=== PATIENT | male | born 1975 | race Two or more races ===

== ENCOUNTER 2021-06-05 13:49 | Inpatient (IN) | payer MEDICAID ==
[~2021-06-05] VITALS: Ht 167.6 cm; Wt 85.3 kg
[2021-06-05] MEDS ORDERED: HYDROCODONE/APAP 5/325MG TABLET PO ONE (14:30)
--- NOTE | 2021-06-05 15:00 | NUR ---
BIB SON C/O R ELBOW PAIN S/P FALL
[2021-06-05] MEDS ORDERED: HYDROCODONE/APAP 5/325MG TABLET ONE (15:32)
[2021-06-05 17:38] LABS: BASOPHILS % (AUTO) 0.3 % (0.0-2.0); EOSINOPHILS % (AUTO) 0.2 % (0.0-6.0); HEMATOCRIT 44 % (39-51); HEMOGLOBIN 14.6 g/dL (13.5-17.5); LYMPHOCYTES # (AUTO) 1.4 K/uL (0.8-4.8); LYMPHOCYTES % (AUTO) 12.1 % (20.0-44.0); MEAN CORPUSCULAR HGB CONC 33 g/dl (31.0-36.0); MEAN CORPUSCULAR VOLUME 95 fL (80-96); MONOCYTES # (AUTO) 0.7 K/uL (0.1-1.30); MONOCYTES % (AUTO) 5.8 % (2.0-12.0); NEUTROPHILS # (AUTO) 9.6 K/uL (1.8-8.9); NEUTROPHILS % (AUTO) 81.6 % (43.0-81.0); PLATELET COUNT (AUTO) 243 K/uL (150-450); RED BLOOD CELL COUNT(AUTO) 4.64 MIL/uL (4.5-6.0); WHITE BLOOD COUNT (AUTO) 11.8 K/uL (4.3-11.0)
--- NOTE | 2021-06-05 17:39 | NUR ---
COVID SWAB DONE AND SENT TO LAB
[2021-06-05 18:24] LABS: CALCIUM, SERUM 8.9 mg/dL (8.5-10.1); CREATININE 0.9 mg/dL (0.6-1.3); POTASSIUM 3.5 mmol/L (3.5-5.1)
--- NOTE | 2021-06-05 19:28 | NUR ---
PAGED EPIC FOR PT. AWAITING A CALL BACK.
--- NOTE | 2021-06-05 19:58 | NUR ---
PAGED ORTHO AWAITING A CALL BACK.
--- NOTE | 2021-06-05 20:00 | NUR ---
RECEIVED REPORT FROM MARCELINO GRANT FOR PRATIMA
--- NOTE | 2021-06-05 20:01 | NUR ---
PT IS RESTING COMFORTABLY IN BED, PT DENIES ANY PAON AT THIS TIME.
--- NOTE | 2021-06-05 21:10 | NUR ---
PER LAB, COVID ANTIGEN SWAB NOT SUBMITTED. 2ND SWAB COLLECTED AND SENT TO LAB
[2021-06-05] MEDS ORDERED: HYDROCODONE/APAP 5/325MG TABLET PO PRN (21:30)
[2021-06-05] MEDS ORDERED: Z GUARD REMEDY 4 OZ OINT TP PRN (21:30)
[2021-06-05] MEDS ORDERED: ACETAMINOPHEN 325 MG TABLET PO PRN (21:30)
[2021-06-05] MEDS ORDERED: ONDANSETRON HCL/PF 4 MG/2 ML VIAL IVP PRN (21:30)
--- NOTE | 2021-06-05 21:59 | NUR ---
REPORT GIVEN TO FIDENCIO GRANT FOR PRATIMA
[2021-06-05 22:23] VITALS: BP 153/96
[2021-06-05 22:48] VITALS: BP 153/96
--- NOTE | 2021-06-05 22:48 | NUR ---
RN ADMITTING NOTE PATIENT ADMITTED FROM ER D/T R ELBOW FX- PATIENT CHASING THE BUS AND MIS-STEPPED ON THE SIDEWALK. PATIENT IS A/O X 4 ABLE TO MAKE NEEDS KNOWN, CROATIAN SPEAKING BUT UNDERSTANDS SOME AUSTRIAN. PATIENT COMPLAINING OF PAIN ON THE RIGHT ELBOW. SLING AND A CAST PRESENT ON THE RIGHT UPPER ARM. PATIENT IS AMBULATORY AND STEADY. SKIN IS INTACT. PATIENT STATES HE GOT THE COVID VACCINE X2 [facility] AND WOULD LIKE TO RECEIVE THE FLU VACCINE UPON DC. PATIENT HAS A LAC 20 G, PATENT AND INTACT. PATIENT CURRENTLY NPO AT THIS TIME PENDING ORTHO CONSULT. SKIN IS INTACT. BELONGINGS INVENTORIED, ORIENTED PATIENT TO ROOM, RN, AND OUTSIDE ENERGY SALES REPRESENTATIVES. SAFETY MEASURES IN PLACE: BED LOCKED AND IN LOWEST POSITION, CALL LIGHT WITHIN REACH, SIDE RAILS UP. WILL CONTINUE TO MONITOR PATIENT.
[2021-06-05] MEDS: IV NS 0.9% 1,000 ML IV PRN (23:15)
[2021-06-05] MEDS: MORPHINE SULFATE INJ 2 MG/ML DISP.SYRIN IV PRN (23:18)
--- NOTE | 2021-06-05 23:18 | NUR ---
RN NOTE PATIENT GIVEN MORPHINE 4 MG FOR PAIN ON R ELBOW. WILL REASSESS PAIN AND MED EFFECTIVENESS AT A LATER TIME
[2021-06-06 06:22] LABS: BASOPHILS % (AUTO) 0.5 % (0.0-2.0); EOSINOPHILS % (AUTO) 1.5 % (0.0-6.0); HEMATOCRIT 40 % (39-51); HEMOGLOBIN 13.6 g/dL (13.5-17.5); LYMPHOCYTES # (AUTO) 1.7 K/uL (0.8-4.8); LYMPHOCYTES % (AUTO) 26.8 % (20.0-44.0); MEAN CORPUSCULAR HGB CONC 34 g/dl (31.0-36.0); MEAN CORPUSCULAR VOLUME 93 fL (80-96); MONOCYTES # (AUTO) 0.5 K/uL (0.1-1.30); MONOCYTES % (AUTO) 8.4 % (2.0-12.0); NEUTROPHILS # (AUTO) 4.1 K/uL (1.8-8.9); NEUTROPHILS % (AUTO) 62.8 % (43.0-81.0); PLATELET COUNT (AUTO) 205 K/uL (150-450); RED BLOOD CELL COUNT(AUTO) 4.25 MIL/uL (4.5-6.0); WHITE BLOOD COUNT (AUTO) 6.5 K/uL (4.3-11.0)
--- NOTE | 2021-06-06 06:42 | NUR ---
RN CLOSING NOTE PATIENT IS IN BED, EYES CLOSED. EASILY AWAKENED WITH VERBAL STIMULI. PATIENT IS [place]ER SPEAKING, UNDERSTANDS SOME LITHUANIAN. CURRENTLY ON RA, TOLERATING WELL. PATIENT NOT IN ANY APPARENT DISTRESS. SLING ON BLANK STILL ON, CAST INTACT. PATIENT OFFERED PAIN MEDICATION AT THIS TIME, REFUSED, AND PATIENT DENIES PAIN AT THIS TIME. PATIENT HAS A LAC 20 G WITH NS AT 75 ML/HR. PAIN MANAGED WITH MORPHINE 4 MG. NPO STATUS MAINTAINED. SAFETY MEASURES IMPLEMENTED. ALL NEEDS MET AND ATTENDED. ALL ORDERS CARRIED OUT. WILL ENDORSE TO DAY SHIFT NURSE FOR PRATIMA.
[2021-06-06 06:43] LABS: ALBUMIN 3.4 g/dL (3.4-5.0); CALCIUM, SERUM 8.1 mg/dL (8.5-10.1); CREATININE 0.9 mg/dL (0.6-1.3); MAGNESIUM 2.3 mg/dL (1.8-2.4); PHOSPHORUS 3.1 mg/dL (2.5-4.9); POTASSIUM 3.2 mmol/L (3.5-5.1); TOTAL PROTEIN, SERUM 6.6 g/dL (6.4-8.2)
[2021-06-06 08:00] VITALS: BP 143/96
[2021-06-06] MEDS: PANTOPRAZOLE 40 MG VIAL IV SCH (08:26)
[2021-06-06] MEDS: MORPHINE SULFATE INJ 2 MG/ML DISP.SYRIN IV PRN ×2 (08:37→20:20)
--- NOTE | 2021-06-06 08:37 | NUR ---
MEDICATED WITH IV MORPHINE,STATES LITTLE NUMBNESS FINGERS ON RT. HAND.
[2021-06-06] MEDS: POTASSIUM CL. PREMIX PERIPHER. 50 ML IV SCH ×4 (08:49→13:54)
--- NOTE | 2021-06-06 11:43 | NUR ---
MALLORY GALLO AND DR. CASTAÑEDA IN TO SEE PT.DOWN AT THIS TIME FOR CT OF RT. ELBOW,HAS BEEN NPO,PLAN FOR SURG.FOR TUESDAY OR TUE.PER DR. CASTAÑEDA.
[2021-06-06] MEDS: IV NS 0.9% 1,000 ML IV PRN ×2 (12:14→22:10)
--- NOTE | 2021-06-06 13:35 | NUR ---
GETTING IV POTASSIUM REPLACEMENT.
[2021-06-06 16:02] VITALS: BP_SYST 121; BP_SYST 141; BP_DIAS 63; BP_DIAS 91
--- NOTE | 2021-06-06 18:01 | NUR ---
cooperative.no compaints at this time.
[2021-06-06 20:00] VITALS: BP_SYST 138; BP_SYST 95; BP_DIAS 33; BP_DIAS 81
--- NOTE | 2021-06-06 20:31 | NUR ---
RN OPENING NOTE PATIENT IS IN BED, AWAKE, FRIEND AT BEDSIDE. PATIENT IS SAMOAN SPEAKING, UNDERSTANDS SOME DANISH. CURRENTLY ON RA, TOLERATING WELL. PATIENT NOT IN ANY APPARENT DISTRESS. SLING ON BLANK STILL ON, CAST INTACT. PATIENT HAS PAIN 7-8 ON PAIN SCALE BLANK. MORPHINE GIVEN. PATIENT HAS A LAC 20 G, EXPRESSES PAIN ON IV SITE. INSERTED NEW IV ACCESS ON L HAND 20G- PATENT AND INTACT. PATIENT HAS NS @75 ML/HR. SAFETY MEASURES IMPLEMENTED: BED LOCKED AND IN LOWEST POSITION, CALL LIGHT WITHIN REACH, SIDE RAILS UP. WILL MONITOR PATIENT CLOSELY.
--- NOTE | 2021-06-07 06:46 | NUR ---
RN CLOSING NOTE PATIENT IS IN BED, SLEEPING. PATIENT IS ENGLISH SPEAKING, UNDERSTANDS SOME ITALIAN. CURRENTLY ON RA, TOLERATING WELL. PATIENT NOT IN ANY APPARENT DISTRESS. SLING ON BLANK STILL ON, CAST INTACT. L HAND 20G- PATENT AND INTACT. PATIENT HAS NS @75 ML/HR. SAFETY MEASURES IMPLEMENTED: BED LOCKED AND IN LOWEST POSITION, CALL LIGHT WITHIN REACH, SIDE RAILS UP. ALL NEEDS MET AND ATTENDED. ALL ORDERS CARRIED OUT. WILL ENDORSE TO DAY SHIFT NURSE FOR PRATIMA.
--- NOTE | 2021-06-07 08:09 | NUR ---
RN OPENING NOTE PATIENT IN BED RESTING,AWAKE, A/O X4, NO S/S OF PAIN NOTED AT THIS TIME. ON ROOM AIR, NO DISTRESS OR SHORTNESS OF BREATH NOTED. IV ACCESS L HAND #20G, INTACT, PATENT AND FLUSHING WELL. FALL AND SAFETY MEASURES IN PLACE, BED ALARM ON, BED IN LOW AND LOCK POSITION, CALL LIGHT AND TABLE WITHIN EASY REACH, SIDE RAILS UP X2. WILL CONTINUE TO MONITOR.
[2021-06-07 08:14] VITALS: BP 148/93
[2021-06-07 08:44] LABS: CALCIUM, SERUM 8.2 mg/dL (8.5-10.1); CREATININE 0.8 mg/dL (0.6-1.3); POTASSIUM 3.5 mmol/L (3.5-5.1)
[2021-06-07] MEDS: PANTOPRAZOLE 40 MG VIAL IV SCH (09:48)
[2021-06-07] MEDS: MORPHINE SULFATE INJ 2 MG/ML DISP.SYRIN IV PRN (10:23)
[2021-06-07] MEDS: IV NS 0.9% 1,000 ML IV PRN (13:28)
--- NOTE | 2021-06-07 18:10 | NUR ---
RN opening notes Received Pt from morning nurse. Pt is sitting in bed comfortably accompanied by his friend. Pt is alert and orientedx4. with R arm cast and sling on. Pt speaks Sao Tomean and able to make needs known. On room air. No SOB. No S/S of distress noted. IV site at L hand # 20 is clean, intact and infusing well NS@ 75ml/hr. Pt is able to ambulate with a steady gait. Safety precautions is maintained. Bed at low position, brakes locked, side rails upX2, hob elevated and call light is within reach. Will continue to monitor.
--- NOTE | 2021-06-07 19:00 | NUR ---
RN notes Pt's complaining of pain on R arm and elbow and requesting pain med. administered norco5/1 tab/po/prn as ordered for pain. VS is stable. safety precautions is maintained. Will continue to monitor.
--- NOTE | 2021-06-07 19:36 | NUR ---
RN CLOSING NOTE PATIENT IN BED RESTING,AWAKE, A/O X4, NO S/S OF PAIN NOTED AT THIS TIME. ON ROOM AIR, NO DISTRESS OR SHORTNESS OF BREATH NOTED. IV ACCESS L HAND #20G, INTACT, PATENT AND FLUSHING WELL. ALL SCHEDULE MEDICATIONS ADMINISTERED. FALL AND SAFETY MEASURES IN PLACE, BED ALARM ON, BED IN LOW AND LOCK POSITION, CALL LIGHT AND TABLE WITHIN EASY REACH, SIDE RAILS UP X2. PATIENT SHOULD BE NPO- NIGHT BEFORE SURGERY. WILL ENDORSE TO VEHICLE LEASING AND RENTAL MANAGER.
[2021-06-07 20:00] VITALS: BP 154/93
[2021-06-07 20:13] VITALS: BP 154/93
[2021-06-08] VITALS (7 sets, daily range): BP systolic 138–160; BP diastolic 81–101
[2021-06-08] MEDS: IV NS 0.9% 1,000 ML IV PRN (02:03)
[2021-06-08 02:25] LABS: BASOPHILS # (AUTO) 0.1 K/uL (0.0-0.2); BASOPHILS % (AUTO) 0.9 % (0.0-2.0); EOSINOPHILS % (AUTO) 1.7 % (0.0-6.0); HEMATOCRIT 38 % (39-51); LYMPHOCYTES # (AUTO) 1.9 K/uL (0.8-4.8); LYMPHOCYTES % (AUTO) 28.9 % (20.0-44.0); MEAN CORPUSCULAR HGB CONC 35 g/dl (31.0-36.0); MEAN CORPUSCULAR VOLUME 93 fL (80-96); MONOCYTES # (AUTO) 0.6 K/uL (0.1-1.30); MONOCYTES % (AUTO) 8.6 % (2.0-12.0); NEUTROPHILS # (AUTO) 3.9 K/uL (1.8-8.9); NEUTROPHILS % (AUTO) 59.9 % (43.0-81.0); PLATELET COUNT (AUTO) 192 K/uL (150-450); RED BLOOD CELL COUNT(AUTO) 4.07 MIL/uL (4.5-6.0); WHITE BLOOD COUNT (AUTO) 6.5 K/uL (4.3-11.0)
[2021-06-08 02:50] LABS: ALBUMIN 3.1 g/dL (3.4-5.0); BILIRUBIN,TOTAL 0.5 mg/dL (0.2-1.0); CALCIUM, SERUM 8.2 mg/dL (8.5-10.1); CREATININE 0.9 mg/dL (0.6-1.3); POTASSIUM 3.7 mmol/L (3.5-5.1); TOTAL PROTEIN, SERUM 6.6 g/dL (6.4-8.2)
--- NOTE | 2021-06-08 06:41 | NUR ---
RN closing notes Pt is resting in bed comfortably. Pt is alert and orientedx4 with R arm cast and sling on. On room air. No SOB. No S/S of distress noted. IV site at L hand # 20 is clean, intact and infusing well NS@ 75ml/hr. Pt is NPO since midnight. Kept Pt clean, dry and comfortable. Safety precautions is maintained. Bed at low position, brakes locked, side rails upX2, hob elevated and call light is within reach. Will endorse to am nurse for PRATIMA.
--- NOTE | 2021-06-08 07:20 | NUR ---
RN OPENING NOTES RECEIVED PATIENT IN BED, AWAKE, A/OX4, VERBALLY RESPONSIVE. NO SIGNS OF ACUTE DISTRESS NOTED. STABLE ON ROOM AIR. ON NPO FOR PLANNED SURGERY THIS MORNING. NOTED WITH IV ACCESS ON LEFT HAND #20G, INTACT AND PATENT WITH NS @75ML/HR RUNNING. SAFETY MEASURES IN PLACE. WILL CONTINUE TO MONITOR PATIENT.
[2021-06-08] MEDS ORDERED: POLYMYXIN B SULFATE 500,000 UNITS ONE (07:40)
[2021-06-08] MEDS ORDERED: BUPIVACAINE MPF 0.5% W/EPI INJ 30 ML VIAL ONE (07:40)
[2021-06-08] MEDS ORDERED: ANESTHESIA TRAY IN PYXIS 1 EA TRAY MC ONE (07:40)
[2021-06-08] MEDS ORDERED: BUPIVACAINE 0.5 % PF 150 MG/30 ML VIAL ONE (07:40)
--- NOTE | 2021-06-08 08:14 | NUR ---
RN NOTES PATIENT PICKED UP BY NURSE VEGA FOR SURGERY, IN STABLE CONDITION.
[2021-06-08] MEDS: PANTOPRAZOLE 40 MG TABLET.DR PO SCH (09:00)
[2021-06-08] MEDS ORDERED: FENTANYL PF 250MCG/5ML AMPUL ONE ×2 (09:38)
[2021-06-08] MEDS ORDERED: MIDAZOLAM HCL 2 MG/2ML VIAL ONE (09:39)
[2021-06-08] MEDS ORDERED: FAMOTIDINE/PF INJ 20 MG/2 ML VIAL IV ONE (09:39)
[2021-06-08] MEDS ORDERED: HYDROMORPHONE INJ 2 MG/ML DISP.SYRIN ONE (09:39)
[2021-06-08] MEDS ORDERED: ROCURONIUM BROMIDE 50 MG/5 ML ONE (09:40)
[2021-06-08] MEDS ORDERED: VANCOMYCIN 1 GM VIAL ONE ×2 (11:02→11:05)
[2021-06-08] MEDS ORDERED: HYDROMORPHONE 1 MG/1 ML DISP.SYRIN ONE (12:38)
--- NOTE | 2021-06-08 13:40 | NUR ---
RN NOTES PATIENT BACK FROM SURGERY. S/P ORIF RIGHT DISTAL HUMERUS. NOTES SITE WITH CLEAN AND DRY DRESSING, WITH SLING IN PLACE. PATIENT REMAINS AWAKE, ALERT AND VERBALLY RESPONSIVE. NO SIGNS OF ACUTE RESPIRATORY DISTRESS NOTED. VITAL SIGNS WITHIN NORMAL LIMITS. STABLE ON ROOM AIR. D5 1/2 NS + 20MEQ KCL STARTED. WILL CONTINUE TO MONITOR PATIENT.
[2021-06-08] MEDS: IV D5/0.45 NACL W/20 MEQ KCL 1L IV PRN ×2 (13:54)
[2021-06-08] MEDS: MORPHINE SULFATE INJ 4 MG/ML DISP.SYRIN IV PRN ×4 (14:52→23:22)
[2021-06-08] MEDS: ANCEF 1 GM/50 ML D5W IV SCH ×2 (17:05)
--- NOTE | 2021-06-08 18:44 | NUR ---
RN CLOSING NOTES PATIENT IN BED, AWAKE, A/OX4, VERBALLY RESPONSIVE. NO SIGNS OF ACUTE DISTRESS NOTED. REMAINS STABLE ON ROOM AIR. S/P ORIF RIGHT HUMERUS, SITE WITH SPLINT AND SLING IN PLACE. IV ACCESS ON LEFT HAND #20G, INTACT AND PATENT WITH D5 1/2 NS + 20 MEQ KCL @75ML/HR RUNNING. SAFETY MEASURES MAINTAINED. BED LOCKED AND IN LOWEST POSITION, SR UP X2, CALL LIGHT PLACED WITHIN EASY REACH. WILL ENDORSE TO NEXT SHIFT.
--- NOTE | 2021-06-08 19:40 | NUR ---
MSRN FULLY AWAKE, RESTING QUIETLY. LEVEL OF PAIN TOLERABLE. RIGHT SHOULDER DRESSING INTACT WITH ARM SLING ARM SWOLLEN. ELEVATED ON PILLOWS. PRESENT IVF INFUSING WELL VIA LEFT HAND. KEPT COMFORTABLE, REMINDED TO CALL STAFF FOR ANY ASSISTANCE OR DISCOMFORTS. CALL LIGHR WITHIN REACH.
--- NOTE | 2021-06-08 21:30 | NUR ---
MSRN VERBALIZES SEVERE RIGHT ARM PAIN. MORPHINE 4 MG IVP ADMINISTERED ORDERED. BEDREST INSTRUCTED. CONTINUED.
--- NOTE | 2021-06-08 23:00 | NUR ---
MSRN PAIN MGT REVIEWED WITH PATIENT THROUGH TRANSLATION WITH ARGENTINE SPEAKING STAFF. WELL UNDERSTOOD. PLAN OF CARE AND MEDICATION REGIMEN DISCUSSED WITH PATIENT. APPEARS TO UNDERSTAND.
[2021-06-09] MEDS: ANCEF 1 GM/50 ML D5W IV SCH ×4 (02:04→11:21)
[2021-06-09] MEDS: MORPHINE SULFATE INJ 4 MG/ML DISP.SYRIN IV PRN ×3 (02:18→08:05)
--- NOTE | 2021-06-09 04:29 | NUR ---
MSRN SLEEPS ON/OFF. HAS BEEN MEDICATED FOR POST OP PAIN ALMOST Q 2 HRS. KEPT RIGHT ARM ELEVATED ON PILLOWS. KEPT COMFORTABLE.
--- NOTE | 2021-06-09 06:48 | NUR ---
MSRN ASLEEP, IVF CONTINUED.
--- NOTE | 2021-06-09 07:35 | NUR ---
RN OPENING NOTES RECEIVED PATIENT IN BED, AWAKE A/O X4. ON RA WITH NO S/SX OF RESP DISTRESS NOTED. S/P ORIF RIGHT HUMERUS. MINIMAL COMPLAINT OF PAIN TO THE RIGHT ARM WITH SOME EDEMA NOTED TO THE RIGHT HAND. RIGHT ARM IN SLING WITH KODY BANDAGE IN PLACE, ELEVATED FOR COMFORT AND HEALING. IV ACCESS ON LEFT HAND G#20, INTACT AND PATENT WITH D5 1/2 NS RUNNING @75ML/HR RUNNING. SAFETY MEASURES IN PLACE. WILL CONTINUE PLAN OF CARE
[2021-06-09 08:00] VITALS: BP 154/91
[2021-06-09] MEDS: PANTOPRAZOLE 40 MG TABLET.DR PO SCH (08:05)
[2021-06-09] MEDS: IV NS 0.9% 1,000 ML IV PRN (08:29)
[2021-06-09] MEDS: HYDROCODONE/APAP 10/325MG TABLET PO PRN ×3 (12:46→21:55)
--- NOTE | 2021-06-09 13:00 | NUR ---
RN NOTES L HAND G#20 ACCESS INFILTRATED/DISCONTINUED. NEW ACCESS L AC G#20, FLUSHING WELL.
[2021-06-09 16:00] VITALS: BP 150/90
--- NOTE | 2021-06-09 18:49 | NUR ---
RN CLOSING NOTES PATIENT AWAKE IN BED, A/O X4. ON RA WITH NO S/SX OF RESPIRATORY DISTRESS NOTED. RIGHT ARM WITH KODY WRAP AND SLING IN PLACE. ELEVATED AND ICE PRN FOR SWELLING. EDEMA NOTED AT RIGHT HAND IS DECREASING FROM THIS MORNING. PATIENT EXPRESSES DECREASE IN PAIN. SAFETY MEASURES IN PLACE. WILL ENDORSE TO HOTEL MAINTENANCE WORKER NURSE FOR PRATIMA
--- NOTE | 2021-06-09 19:43 | NUR ---
RN OPENING NOTES PATIENT AWAKE IN BED, A/O X4. ON RA WITH NO S/SX OF RESPIRATORY DISTRESS NOTED. RIGHT ARM WITH KODY WRAP AND SLING IN PLACE. ELEVATED AND ICE PRN FOR SWELLING. EDEMA NOTED AT RIGHT HAND. PATIENT EXPRESSES NO PAIN AT THIS TIME. SAFETY MEASURES IN PLACE. WILL CONTINUE TO MONITOR.
[2021-06-09 20:00] VITALS: BP 141/89
--- NOTE | 2021-06-09 22:16 | NUR ---
MS RN NOTES PROVIDED PT WITH PRN NORCO 10-325 FOR 7/10 PAIN. TOLERATED WELL. WILL CONTINUE TO MONITOR.
[2021-06-10] MEDS: HYDROCODONE/APAP 10/325MG TABLET PO PRN ×3 (02:09→21:58)
--- NOTE | 2021-06-10 02:10 | NUR ---
MS RN NOTE PATIENT REPORTING 7/10 PAIN ON RIGHT ELBOW WHILE COVERING FOR RUDY RICHARDSON. NORCO 10-325 MG PO GIVEN ORDERED
--- NOTE | 2021-06-10 06:39 | NUR ---
RN CLOSING NOTES PATIENT AWAKE IN BED, A/O X4. ON RA WITH NO S/SX OF RESPIRATORY DISTRESS NOTED. RIGHT ARM WITH KODY WRAP AND SLING IN PLACE. ELEVATED AND ICE PRN FOR SWELLING. EDEMA NOTED AT RIGHT HAND. PATIENT GIVEN PRN NORCO THROUGHOUT THE SHIFT FOR PAIN MANAGEMENT TOLERATED WELL. SAFETY MEASURES IN PLACE. WILL ENDORSE CARE TO DAY SHIFT NURSE. Addendum: 06/10/21 at 0650 by DYLAN MANZO RN PT CURRENTLY NOT CONNECTED TO IV FLUIDS PT STATED ' I DONT NEED IT I DRINK A LOT OF WATER IM OKAY MAYBE LATER" RISK AND BENEFITS EXPLAINED X 3 REFUSEDX3 WILL CONTINUE TO MONITOR.
[2021-06-10 07:03] LABS: CALCIUM, SERUM 8.7 mg/dL (8.5-10.1); CREATININE 0.8 mg/dL (0.6-1.3); POTASSIUM 3.4 mmol/L (3.5-5.1)
[2021-06-10 08:00] VITALS: BP 149/97
[2021-06-10] MEDS ORDERED: POTASSIUM CHLORIDE 20 MEQ TAB.PRT.SR PO ONE (08:00)
[2021-06-10] MEDS: PANTOPRAZOLE 40 MG TABLET.DR PO SCH (09:12)
[2021-06-10 10:10] LABS: BASOPHILS % (AUTO) 0.8 % (0.0-2.0); EOSINOPHILS % (AUTO) 1.9 % (0.0-6.0); HEMATOCRIT 38 % (39-51); HEMOGLOBIN 13.4 g/dL (13.5-17.5); LYMPHOCYTES # (AUTO) 0.8 K/uL (0.8-4.8); LYMPHOCYTES % (AUTO) 18.4 % (20.0-44.0); MEAN CORPUSCULAR HGB CONC 35 g/dl (31.0-36.0); MEAN CORPUSCULAR VOLUME 92 fL (80-96); MONOCYTES # (AUTO) 0.6 K/uL (0.1-1.30); MONOCYTES % (AUTO) 13.2 % (2.0-12.0); NEUTROPHILS # (AUTO) 2.9 K/uL (1.8-8.9); NEUTROPHILS % (AUTO) 65.7 % (43.0-81.0); PLATELET COUNT (AUTO) 183 K/uL (150-450); RED BLOOD CELL COUNT(AUTO) 4.12 MIL/uL (4.5-6.0); WHITE BLOOD COUNT (AUTO) 4.5 K/uL (4.3-11.0)
--- NOTE | 2021-06-10 11:27 | NUR ---
given kdur for low potassium.
[2021-06-10] MEDS: IV D5/0.45 NACL W/20 MEQ KCL 1L IV PRN ×2 (13:40)
--- NOTE | 2021-06-10 13:55 | NUR ---
MEDICATED FOR PAIN WITH NORCO.
--- NOTE | 2021-06-10 15:27 | NUR ---
no change in status.
[2021-06-10 16:00] VITALS: BP 136/85
--- NOTE | 2021-06-10 19:15 | NUR ---
MS RN OPENING NOTES RECEIVED PATIENT LAYING AWAKE IN BED. A/O X4. PATIENT WITH REGULAR AND UNLABORED BREATHING ON ROOM AIR TOLERATED WELL. NO SIGNS AND SYMPTOMS OF DISTRESS NOTED AT THIS TIME. NO COMPLAINS OF PAIN OR DISCOMFORT AT THIS TIME. IV ACCESS LAC G #20 INFUSING 20 MEQ KCL D5 1/2NS @ 75 ML/HR. IV ACCESS PATENT AND INTACT. SAFETY PRECAUTIONS ENFORCED WITH BED LOCKED AND AT LOWEST POSITION. SIDERAILS UP X2. CALL LIGHT WITHIN REACH AT ALL TIMES. WILL CONTINUE TO MONITOR PATIENT.
[2021-06-10 20:00] VITALS: BP 139/89
--- NOTE | 2021-06-10 22:00 | NUR ---
MS RN NOTES PATIENT COMPLAINED OF PAIN. ADMINISTERED NORCO ORDERED BY HOSPITALIST. WILL CONTINUE TO MONITOR PATIENT.
[2021-06-11] MEDS: IV D5/0.45 NACL W/20 MEQ KCL 1L IV PRN ×4 (04:57→18:22)
--- NOTE | 2021-06-11 06:43 | NUR ---
MS RN CLOSING NOTES PATIENT STILL LAYING AWAKE IN BED. A/O X4. PATIENT WITH REGULAR AND UNLABORED BREATHING ON ROOM AIR TOLERATED WELL. NO SIGNS AND SYMPTOMS OF DISTRESS NOTED AT THIS TIME. NO COMPLAINS OF PAIN OR DISCOMFORT AT THIS TIME. IV ACCESS LAC G #20 INFUSING 20 MEQ KCL D5 1/2NS @ 75 ML/HR. IV ACCESS PATENT AND INTACT. SAFETY PRECAUTIONS ENFORCED WITH BED LOCKED AND AT LOWEST POSITION. SIDERAILS UP X2. CALL LIGHT WITHIN REACH AT ALL TIMES. WILL ENDORSE CONTINUITY OF CARE TO DAY SHIFT NURSE.
--- NOTE | 2021-06-11 07:28 | NUR ---
MS GRANT OPENING NOTES RECEIVED PT IN BED AWAKE. A/OX4. ABLE TO MAKE NEEDS KNOWN. PT IS ARMENIAN SPEAKING. ON RA, TOLERATING WELL. BREATHING EVEN AND UNLABORED. NOT IN ANY SIGN OF DISTRESS. LAC G #20 IV ACCESS INTACT WITH 20 KCL+NS RUNNING AT 125 ML/HR. PATIENT ON NPO AT THIS TIME. SAFETY MEASURES IN PLACE: BED IN LOWEST AND LOCKED POSITION, SIDE RAILS UPX2, CALL LIGHT WITHIN EASY REACH. WILL CONTINUE TO MONITOR PT AND WITH PLAN OF CARE. Addendum: 06/11/21 at 1451 by DREW WASHINGTON RN CORRECTION: PATIENT IS NOT ON NPO AND ONLY RECEIVING 20 KCL +NS RUNNING AT 75ML/HR.
[2021-06-11 07:41] LABS: BASOPHILS % (AUTO) 0.7 % (0.0-2.0); EOSINOPHILS % (AUTO) 2.1 % (0.0-6.0); HEMATOCRIT 38 % (39-51); HEMOGLOBIN 13.3 g/dL (13.5-17.5); LYMPHOCYTES # (AUTO) 1.4 K/uL (0.8-4.8); LYMPHOCYTES % (AUTO) 26.3 % (20.0-44.0); MEAN CORPUSCULAR HGB CONC 35 g/dl (31.0-36.0); MEAN CORPUSCULAR VOLUME 92 fL (80-96); MONOCYTES # (AUTO) 0.8 K/uL (0.1-1.30); MONOCYTES % (AUTO) 15.9 % (2.0-12.0); NEUTROPHILS # (AUTO) 2.9 K/uL (1.8-8.9); PLATELET COUNT (AUTO) 212 K/uL (150-450); WHITE BLOOD COUNT (AUTO) 5.3 K/uL (4.3-11.0)
[2021-06-11 07:43] LABS: CALCIUM, SERUM 8.3 mg/dL (8.5-10.1); CREATININE 0.8 mg/dL (0.6-1.3); POTASSIUM 3.8 mmol/L (3.5-5.1)
[2021-06-11 08:00] VITALS: BP 146/96
[2021-06-11] MEDS: PANTOPRAZOLE 40 MG TABLET.DR PO SCH (09:50)
[2021-06-11 16:00] VITALS: BP 133/84
[2021-06-11] MEDS: HYDROCODONE/APAP 10/325MG TABLET PO PRN (18:11)
--- NOTE | 2021-06-11 18:12 | NUR ---
RN NOTES PT C/O ACHING AND BURNING PAIN ON RIGHT ARM, PRN NORCO 10/325 MG PO GIVEN AT 181. WILL CONTINUE TO MONITOR AND REASSESS PT
--- NOTE | 2021-06-11 18:47 | NUR ---
MS RN CLOSING NOTES PT IN BED AWAKE AND WATCHING TV AT THIS TIME. A/OX4. CYMRAES SPEAKING. DRESSING ON RIGHT ARM C/D/I. PT TOLERATING ROOM AIR, BREATHING EVEN AND UNLABORED, NO SOB NOTED. IV ACCESS ON LAC G #20 INTACT WITH IVF OF 20 MEQ KCL+NS RUNNING AT 75 ML/HR, NO S/S OF INFILTRATIONS NOTED. ALL NEEDS AND CARE ATTENDED WELL. SAFETY MEASURES KEPT IN PLACE: BED IN LOWEST AND LOCKED POSITION, SIDE RAILS UPX2, CALL LIGHT WITHIN EASY REACH. WILL ENDORSE PRATIMA TO ATOMIC WELDER NURSE.
--- NOTE | 2021-06-11 19:10 | NUR ---
MS RN OPENING NOTES: RECEIVED PATIENT SITTING IN BED, AWAKE, A/O X4. NO S/S OF DISTRESS NOTED. NO COMPLAIN OF PAIN. WITH RIGHT ARM SLING. CALL LIGHT WITHIN REACH. BED IN LOWEST AND LOCKED POSITION.
[2021-06-11 20:32] VITALS: BP 142/91
[2021-06-12] MEDS: IV D5/0.45 NACL W/20 MEQ KCL 1L IV PRN ×2 (05:38)
[2021-06-12 07:30] LABS: CALCIUM, SERUM 8.8 mg/dL (8.5-10.1); CREATININE 0.8 mg/dL (0.6-1.3); POTASSIUM 3.6 mmol/L (3.5-5.1)
--- NOTE | 2021-06-12 07:30 | NUR ---
MS RN OPENING NOTES RECEIVED PATIENT IN BED AWAKE, A/O X4. NO S/S OF DISTRESS NOTED. NO PAIN VERBALIZED AT THIS TIME. RIGHT ARM SLING IN PLACE. SAFETY PRECAUTIONS IN PLACE. WILL CONTINUE PLAN OF CARE
[2021-06-12 07:55] LABS: BASOPHILS % (AUTO) 0.5 % (0.0-2.0); EOSINOPHILS % (AUTO) 2.9 % (0.0-6.0); HEMATOCRIT 38 % (39-51); HEMOGLOBIN 13.3 g/dL (13.5-17.5); LYMPHOCYTES # (AUTO) 1.3 K/uL (0.8-4.8); LYMPHOCYTES % (AUTO) 23.2 % (20.0-44.0); MEAN CORPUSCULAR HGB CONC 35 g/dl (31.0-36.0); MEAN CORPUSCULAR VOLUME 92 fL (80-96); MONOCYTES # (AUTO) 0.6 K/uL (0.1-1.30); MONOCYTES % (AUTO) 10.7 % (2.0-12.0); NEUTROPHILS # (AUTO) 3.6 K/uL (1.8-8.9); NEUTROPHILS % (AUTO) 62.7 % (43.0-81.0); PLATELET COUNT (AUTO) 245 K/uL (150-450); RED BLOOD CELL COUNT(AUTO) 4.12 MIL/uL (4.5-6.0); WHITE BLOOD COUNT (AUTO) 5.8 K/uL (4.3-11.0)
[2021-06-12 08:59] VITALS: BP 139/84
[2021-06-12] MEDS: PANTOPRAZOLE 40 MG TABLET.DR PO SCH (09:40)
--- NOTE | 2021-06-12 12:00 | NUR ---
MANAGER APPOINTMENT NOTES PATIENT IS MEDICALLY STABLE FOR DISCHARGE. VSS. EDUCATED PATIENT ON DISCHARGE INSTRUCTIONS. PATIENT WAS ABLE TO VERBALIZE UNDERSTANDING. ALL BELONGINGS ACCOUNTED FOR AND DOCUMENTS SIGNED. IV ACCESS REMOVED AND ID BAND REMOVED. PATIENT LEFT FACILITY VIA PRIVATE CAR ACCOMPANIED BY FRIEND.
--- NOTE | 2021-06-12 15:33 | NUR ---
received call from Dr. Aaron at 1200 that pt is clear for discharge home.
== END 2021-06-12 12:03 | disposition still patient (30) | DRG 315 ==
LOC: ER 13:53 → MED 22:33
PROVIDERS: ADMIT Hospitalist; ATTEND Family Medicine
PROC: 0PSF04Z Reposition Right Humeral Shaft with Internal Fixation Device, Open Approach (ICD-10-PCS; principal; 2021-06-08)
DX: S42.401A Unspecified fracture of lower end of right humerus, initial encounter for closed fracture (principal); D72.828 Other elevated white blood cell count; E66.9 Obesity, unspecified; W01.0XXA Fall on same level from slipping, tripping and stumbling without subsequent striking against object, initial encounter; E87.6 Hypokalemia; I70.0 Atherosclerosis of aorta; Y92.9 Unspecified place or not applicable; I51.7 Cardiomegaly; Z68.32 Body mass index [BMI] 32.0-32.9, adult
CPT/HCPCS: 36415; 71045-TC; 73060-TC; 73080-TC; 73090-TC; 73200-TC; 80048-TC; 80053-TC; 83735-TC; 84100-TC; 85025-TC; 85610-TC; 85730-TC; 86850-TC; 87081-TC; 93307-TC; A4217; A4565; A6253; A6402; C1713; C9113; C9803; G0378; J0690; J1170; J2250; J2270; J2405; J2704; J2765; J3010; J3370; J3480; J3490; J7030; J7060